=== PATIENT | male | born 1955 | race Caucasian/White ===

== ENCOUNTER 2019-01-14 07:35 | Day surgery (SDC) | payer BC ==
[2019-01-14] MEDS ORDERED: Dextrose 5%-Lactated Ringers 1,000 ML IV SCH (08:15)
[2019-01-14] MEDS ORDERED: Propofol 200 MG/20 ML SDV ONE (08:51)
[2019-01-14] MEDS ORDERED: fentaNYL 100 MCG/2 ML SDV ONE (08:51)
[2019-01-14] MEDS ORDERED: Midazolam 1 MG/ML 2 ML SDV ONE (08:51)
--- OUTSIDE RECORDS SUMMARY | 2019-01-15 11:41 | XMSREPORT | Referral Summary ---
:1955 Author Organization [facility] Address [address] [place] [address] Care Team Providers Name Role Phone Provider, No Attributed RESOURCE Attributed Provider Unavailable Reason for Referral Comprehensive [facility] (Routine) Status Reason Specialty Diagnoses / Referred By Referred To Procedures Contact Contact New Request General Surgery Diagnoses Subcutaneous nodule Franko Campbell, [facility] [address] [place] [phone] Phone: Fax: Scheduling Instructions This is an electronic referral. Transitions of Care (Routine) Status Reason Specialty Diagnoses / Referred By Referred To Procedures Contact Contact New Request Patient Diagnoses Annual physical exam Franko Campbell [facility], [facility], [address] [place], [place] [address] [address] [address] Phone: [place] [address] Fax: Reason for Visit Reason Comments Physical labwork Establish Care Encounter Details Date Type Department Care Team Description 12/30/2018 Office Visit [facility] Franko Campbell, Annual physical exam (Primary Dx); Clinic Family Primary osteoarthritis of both knees; Medicine [address] Subcutaneous nodule [address] [place] [id number] Allergies No Known Allergiesdocumented as of this encounter (statuses as of 12/30/2018) Medications No known medicationsdocumented as of this encounter (statuses as of 12/30/2018) Active Problems No known active problemsdocumented as of this encounter (statuses as of 2018) Immunizations Name Dates Previously Given Next Due HEP B, adult 04/27/2016, 10/28/2015, 09/30/2015 TD(adult)adsorbed 09/07/2003, 07/27/1988 TDAP 12/30/2018 documented as of this encounter Social History Tobacco Use Types Packs/Day Years Used Date Never Smoker Smokeless Tobacco: Never Used Sex Assigned at Date Recorded Not on file Job Start Date Occupation Industry Not on file Not on file Not on file Travel History Travel Start Travel End No recent travel history available. documented as of this encounter Last Filed Vital Signs Vital Sign Reading Time Taken Blood Pressure 132/92 12/30/2018 8:46 AM CDT Pulse 80 12/30/2018 8:43 AM CDT Temperature 36.2 C (97.2 F) 12/30/2018 8:43 AM CDT Respiratory Rate 16 12/30/2018 8:43 AM CDT Oxygen Saturation 96% 12/30/2018 8:43 AM CDT Inhaled Oxygen Concentration - - Weight 98 kg (216 lb) 12/30/2018 8:43 AM CDT Height 170.8 cm (5' 7.25") 12/30/2018 8:43 AM CDT Body Mass Index 33.58 12/30/2018 8:43 AM CDT documented in this encounter Progress Notes Franko Campbell MD - 12/30/2018 9:16 AM CDT Assessment / Plan Annual physical exam - GLUCOSE; Future - PSA; Future - LIPID PANEL; Future - CLINIC REFERRAL ENDOSCOPY NON ONE CHART Primary osteoarthritis of both knees Subcutaneous nodule - CLINIC REFERRAL GENERAL SURGERY ONE CHART Plan: 1we reviewed his screening medical care. He would benefit from colonoscopy. His last colonoscopy was he states was over 10 years ago at the [facility] in [place]. I do not find record of that.We will go ahead and get colonoscopy scheduled. 2immunizations reviewed. He would benefit from tetanus pertussis booster and we will do that today. 3lab pendingwill contact with results when available. 4counseled on the importance of getting his weight down more consistent exercise. 5we will set up surgery consultation to remove this large subcutaneous mass in his right knee. 6discussed physical therapy consultation for his knee pain and he would like to hold off on that. Suggested Aleve or Advil and weight loss otherwise. HPI / History / ROS HPI This gentleman presents today for general physical examination. He states it has been many years since he has had any kind of physical exam. His medical history is quite benign. He has a history of broken arm and broken nose in the past which did not require surgical intervention. He has had tonsillectomy in the past. No other significant medical history. His only current plaint today is some bilateral knee pain which shows up after he is been walking onuneven ground or going up and down a lot of stairs. Not much in the way of morning stiffness or stiffness after prolonged sitting. No locking or buckling or catching of the knee Medications No outpatient medications prior to visit. No facility-administered medications prior to visit. Allergies No Known Allergies Problem List There is no problem list on file for this patient. Medical/Surgical/Family/Social History No past medical history on file. Past Surgical History: Procedure Laterality Date TONSILLECTOMY No family history on file. 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 He has 4 children and 6 grandchildren locally and in [facility]. ROS Review of Systems Constitutional: Negative for appetite change, chills, fatigue and fever. HENT: Negative for congestion, ear pain, hearing loss and sore throat. Eyes: Negative for visual disturbance. Respiratory: Negative for cough, shortness of breath and wheezing. Cardiovascular: Negative for chest pain, palpitations and leg swelling. Gastrointestinal: Negative for abdominal pain, blood in stool, constipation and diarrhea. Endocrine: Negative for cold intolerance. Genitourinary: Negative for difficulty urinating and frequency. Musculoskeletal: Positive for arthralgias (Bilateral knee discomfort. See HPI) . Negative for back pain, joint swelling and myalgias. Skin: Negative for rash. Neurological: Negative for dizziness, weakness and headaches. Hematological: Negative for adenopathy. Psychiatric/Behavioral: Negative for agitation, dysphoric mood and sleep disturbance. The patient isnot nervous/anxious. Physical / Results BP 132/92 Pulse 80 Temp 97.2 F (36.2 C) (Temporal) Resp 16 Ht 1.708 m (5 ' 7.25") Wt 98 kg (216 lb) SpO2 96% BMI 33.58 kg/m2|| Physical Exam Constitutional: He appears well-developed. Overweight HENT: Head: Normocephalic. Right Ear: External ear normal. Left Ear: External ear normal. Nose: Nose normal. Mouth/Throat: Oropharynx is clear and moist. Eyes: Pupils are equal, round, and reactive to light. Right eye exhibits no discharge. Left eye exhibits no discharge. Neck: Normal range of motion. Carotid bruit is not present. No thyromegaly present. Cardiovascular: Normal rate and regular rhythm. No murmur heard. Pulmonary/Chest: No respiratory distress. He has no wheezes. He exhibits no tenderness. Abdominal: He exhibits no distension and no mass. There is no tenderness. Genitourinary: Penis normal. Right testis shows no mass. Left testis shows no mass. Musculoskeletal: Normal range of motion. He exhibits no edema or tenderness. Lymphadenopathy: Head (right side): No submandibular adenopathy present. Head (left side): No submandibular adenopathy present. He has no cervical adenopathy. Right cervical: No superficial cervical and no posterior cervical adenopathy present. Left cervical: No superficial cervical and no posterior cervical adenopathy present. Right axillary: No lateral adenopathy present. Left axillary: No lateral adenopathy present. Right: No inguinal adenopathy present. Left: No inguinal adenopathy present. Neurological: He is alert. He displays normal reflexes. Coordination normal. Skin: Skin is warm and dry. No rash noted. To half to 3 cm subcutaneous nodule right inner thigh with a vascular component. Tender to palpation. Psychiatric: He has a normal mood and affect. His behavior is normal. Vitals reviewed. documented in this encounter Plan of Treatment Name Priority Associated Diagnoses Date/Time GLUCOSE Routine Annual physical exam 12/30/2018 9:20 AM CDT PSA Routine Annual physical exam 12/30/2018 9:20 AM CDT LIPID PANEL Routine Annual physical exam 12/30/2018 9:20 AM CDT Name Priority Associated Diagnoses Order Schedule GLUCOSE Routine Annual physical exam Expected: 12/30/2018 (Approximate), Expires: 01/30/2020 PSA Routine Annual physical exam Expected: 12/30/2018 (Approximate), Expires: 01/30/2020 LIPID PANEL Routine Annual physical exam Expected: 12/30/2018 (Approximate), Expires: 01/30/2020 Name Priority Associated Diagnoses Order Schedule CLINIC REFERRAL ENDOSCOPY NON ONE Routine Annual physical exam Ordered: 01/2019 CHART CLINIC REFERRAL GENERAL SURGERY ONE Routine Subcutaneous nodule Ordered: 01/2019 CHART documented as of this encounter Visit Diagnoses Diagnosis Annual physical exam - Primary Routine general medical examination at a health care facility Primary osteoarthritis of both knees Primary localized osteoarthrosis, lower leg Subcutaneous nodule Localized superficial swelling, mass, or lump documented in this encounter
--- NOTE | 2019-01-17 09:16 | OR ---
DATE OF PROCEDURE: 01/14/2019 PREOPERATIVE DIAGNOSIS: Indications for screening colonoscopy. POSTOPERATIVE DIAGNOSIS: Normal screening colonoscopy. ANESTHESIA: IV sedation. INDICATION FOR PROCEDURE: A 63-year-old presenting for screening colonoscopy. Potential risks of the procedure including bleeding and perforation were discussed, and the patient wishes to proceed. DETAILS OF PROCEDURE: The patient was taken to the operating room and placed in a left lateral decubitus position. IV sedation was administered after which the initial digital rectal exam was performed, which was unremarkable. Colonoscope was then passed to the level of the cecum. Prep was fairly good with only a small amount of liquid stool being present. To that level, there was no diverticula. No areas of colitis. No polyps or other signs of neoplasia. The scope was then withdrawn and the procedure was concluded. The patient was taken to the recovery room in satisfactory condition. There were no evident complications. The patient denies any personal or family history of colon neoplasia, so the next colonoscopy should likely be in 10 years. Andrea Gonzáles MD /[id number]
== END 2019-01-14 11:17 | disposition home or self-care (01) ==
LOC: JP.SDS 07:35
PROVIDERS: ATTEND Surgery
DX: Z12.11 Encounter for screening for malignant neoplasm of colon (principal); E66.9 Obesity, unspecified; Z68.33 Body mass index [BMI] 33.0-33.9, adult
CPT/HCPCS: 45378; J2250; J2704; J3010; J7042

== ENCOUNTER 2021-04-14 20:04 | Emergency (ER) | payer BC, MEDICARE ==
[2021-04-14] MEDS ORDERED: Methocarbamol 500 MG Tab PO ONE (21:16)
[2021-04-14] MEDS ORDERED: Ketorolac 30 MG/ML SDV IM ONE (21:16)
--- NOTE | 2021-04-14 22:13 | EDM.PDOC ---
ED HPI GENERAL MEDICAL PROBLEM - General Chief Complaint: Neck Problem Stated Complaint: FACIAL TICKLING AND SORE NECK Time Seen by Provider: 04/14/21 20:54 Source of Information: Reports: Patient History Limitations: Reports: No Limitations - History of Present Illness INITIAL COMMENTS - FREE TEXT/NARRATIVE: Virgilio is a 66-year-old male presenting to the ED for evaluation of right-sided neck pain radiating to his jaw and causing right lower facial numbness. The patient's symptoms started with neck pain around 11 AM this morning with sharp shooting pain from his lower neck up to the base of the skull on the right side. This also radiated out to his right shoulder. Through the course of the day the neck has become more stiff limiting his ability to turn towards the right or flex his head to the right. He denies any numbness or tingling down the arm. He has had no vision changes. He has had no loss of facial muscle tone. He has had no change in ability to speak or understand. There is been no weakness in the arms or legs. He has had no vision changes. Right Neck Pain Score (Numeric/FACES): 1 - Related Data Allergies Allergy/AdvReac Type Severity Reaction Status Date / Time No Known Allergies Allergy Verified 04/14/21 20:28 Home Meds: Home Meds methocarbamoL [Methocarbamol] 750 mg PO QID PRN #20 tablet 04/14/21 [Rx] Past Medical History HEENT History: Reports: None Gastrointestinal History: Reports: None Musculoskeletal History: Reports: Fracture Endocrine/Metabolic History: Reports: Obesity/BMI 30+ - Infectious Disease History Infectious Disease History: Reports: Chicken Pox - Past Surgical History HEENT Surgical History: Reports: Oral Surgery GI Surgical History: Reports: Colonoscopy Endocrine Surgical History: Reports: None Musculoskeletal Surgical History: Reports: None Social & Family History - Tobacco Use Tobacco Use Status *Q: Never Tobacco User - Caffeine Use Caffeine Use: Reports: Coffee - Recreational Drug Use Recreational Drug Use: Yes ED ROS GENERAL - Review of Systems Review Of Systems: See Below Constitutional: Reports: No Symptoms HEENT: Reports: No Symptoms Respiratory: Reports: No Symptoms Cardiovascular: Reports: No Symptoms Endocrine: Reports: No Symptoms GI/Abdominal: Reports: No Symptoms : Reports: No Symptoms Musculoskeletal: Reports: Neck Pain (Right-sided neck pain and stiffness) Skin: Reports: No Symptoms Neurological: Reports: Numbness (Numbness of the right lower face) Psychiatric: Reports: Anxiety Hematologic/Lymphatic: Reports: No Symptoms Immunologic: Reports: No Symptoms ED EXAM, UPPER BACK/NECK PAIN - Physical Exam Exam: See Below Exam Limited By: No Limitations General Appearance: Alert, No Apparent Distress, Anxious Eye Exam: Bilateral Eye: EOMI, PERRL Throat/Mouth Exam: Normal Inspection, Normal Oropharynx, Normal Voice, No Airway Compromise Head Exam: Atraumatic, Normocephalic Neck Exam: Limited Range of Motion (Due to pain and stiffness of the muscles with flexion towards the right or rotation towards the right), Muscle Spasm (Right-sided muscle spasm. Tenderness with palpation over the right occipital knob), Painful Range of Motion (Pain with flexion of the head towards the right or rotation of the head towards the right), Paraspinous Muscle Tender, Stiff Neck (Right-sided muscle stiffness and spasm). No: Spinous Processes Tender, Tender Midline Nexus Criteria: No: Posterior, Midline Cervical Tenderness, Evidence of Intoxication, Altered Level of Consciousness, Focal Neurological Deficit, Painful Distraction Injuries Cardiovascular/Respiratory: Regular Rate, Rhythm, No M/R/G Extremities: Normal Inspection, Normal Range of Motion Neurologic: web content executive II-XII nml As Tested, No Motor/Sensory Deficits, Alert, Normal Mood/Affect, Oriented x 3 Skin Exam: Normal Color, Warm/Dry Course - Vital Signs Last Recorded V/S: Last Vital Signs Temp 36.3 C 04/14/21 20:26 Pulse 104 H 04/14/21 20:26 Resp 16 04/14/21 20:26 BP 174/105 H 04/14/21 20:26 Pulse Ox 94 L 04/14/21 20:26 - Orders/Labs/Meds Meds: Medications Discontinued Medications Generic Name Dose Route Start Last Admin Trade Name Freq PRN Reason Stop Dose Admin Ketorolac Tromethamine 30 mg 04/14/21 21:16 04/14/21 21:31 Ketorolac 30 Mg/Ml Sdv IM 04/14/21 21:17 30 mg ONETIME ONE Administration Methocarbamol 1,000 mg 04/14/21 21:16 04/14/21 21:31 Methocarbamol 500 Mg Tab PO 04/14/21 21:17 1,000 mg ONETIME ONE Administration - Re-Assessments/Exams Free Text/Narrative Re-Assessment/Exam: 04/14/21 22:19 patient has symptoms and findings consistent with acute torticollis of the right neck. He was treated with Toradol 30 mg IM and methocarbamol 1000 mg p.o. with marked improvement in his symptoms after an hour. We will continue the therapy as an outpatient with methocarbamol 750 mg 4 times daily as needed should he need it and ibuprofen 600 mg 4 times daily as needed for pain. Indications to return to the ED were discussed and the patient is suitable for discharge in satisfactory condition. Departure - Departure Time of Disposition: 22:11 Disposition: Home, Self-Care 01 Clinical Impression: Torticollis - Discharge Information Prescriptions: methocarbamoL [Methocarbamol] 750 mg PO QID PRN #20 tablet PRN Reason: Muscle Spasm - Painful Instructions: Acute Torticollis, Adult Referrals: Franko Campbell MD [Primary Care Provider] - Forms: ED Department Discharge Care Plan Goals: You are feeling better with the methocarbamol. I have prescribed this for you in case this recurs. Please take the printed prescription to the pharmacy in the morning. You may benefit from heat to the area if you so choose. You may also want to continue the use of the anti-inflammatory ibuprofen 600 mg (3 tablets of Advil) every 6 hours to reduce inflammation of the nerve. Sepsis Event Note (ED) - Evaluation Sepsis Screening Result: No Definite Risk - Focused Exam Vital Signs: Vital Signs Temp Pulse Resp BP Pulse Ox 04/14/21 20:26 36.3 C 104 H 16 174/105 H 94 L - Problem List & Annotations (1) Torticollis SNOMED Code(s): 63558145 Code(s): M43.6 - TORTICOLLIS Status: Acute Priority: Medium Current Visit: Yes - Problem List Review Problem List Initiated/Reviewed/Updated: Yes
== END 2021-04-14 22:19 | disposition home or self-care (01) ==
LOC: JP.ED 20:04
DX: M43.6 Torticollis (principal); E66.9 Obesity, unspecified; Z68.35 Body mass index [BMI] 35.0-35.9, adult
CPT/HCPCS: 96372; 99283; A9270; J1885

== ENCOUNTER 2021-07-18 14:54 | Emergency (ER) | payer BC, MEDICARE ==
[2021-07-18 16:58] LABS: CORONAVIRUS COVID-19 NAA POSITIVE (NEGATIVE)
[2021-07-18] MEDS ORDERED: predniSONE 20 MG Tab PO ONE (18:26)
== END 2021-07-18 19:38 | disposition home or self-care (01) ==
LOC: JP.ED 14:54
DX: U07.1 COVID-19 (principal)
CPT/HCPCS: 0241U; 36415; 80048; 80076; 82728; 83605; 83615; 84145; 85025; 85379; 86140; 93005; 99285; J7512